=== PATIENT | male | born 1960 | race Caucasian/White ===

== ENCOUNTER → 2016-10-07 | Outpatient (CLI) | payer BC ==
--- NOTE | 2016-10-07 16:15 | DIAGNOSTIC IMAGING REPORT ---
LEFT WRIST MIN 3 VIEWS ROUTINE CLINICAL HISTORY: Medial left wrist lump. COMPARISON: None FINDINGS: Alignment of the left wrist is anatomic. No fracture or suspicious lesion is present. Scaphoid is intact. No soft tissue calcifications are identified. There is no bony destruction. Minimal degenerative changes of the radiocarpal articulation are present. IMPRESSION: Unremarkable left wrist radiographs for age. Electronically signed by: Keyshawn Hickman M.D. 10/07/2016 4:13 PM Dictated Date/Time: 10/07/2016 4:12 PM
== END | disposition home or self-care (01) ==
LOC: C.RADBC 15:11
PROVIDERS: ATTEND Internal Medicine
DX: R22.32 Localized swelling, mass and lump, left upper limb (principal); E04.1 Nontoxic single thyroid nodule

== ENCOUNTER → 2016-10-14 | Outpatient (CLI) | payer BC ==
--- NOTE | 2016-10-14 15:30 | DIAGNOSTIC IMAGING REPORT ---
THYROID ULTRASOUND CLINICAL HISTORY: Thyroid nodule. COMPARISON STUDY: None. TECHNIQUE: Sonography of the thyroid gland was performed. FINDINGS: The right thyroid lobe measures 4.2 x 1.6 x 1.3 cm and the left lobe measures 3.9 x 1.6 x 1.4 cm. No thyroid nodules are present. The gland is homogeneous. IMPRESSION: Normal thyroid ultrasound. No thyroid nodule. Electronically signed by: Keyshawn Hickman M.D. 10/14/2016 3:29 PM Dictated Date/Time: 10/14/2016 3:28 PM
== END | disposition home or self-care (01) ==
LOC: C.ULTRBC 14:47
PROVIDERS: ATTEND Internal Medicine
DX: E04.1 Nontoxic single thyroid nodule (principal)